=== PATIENT | male | born 1970 | race African-American/Black ===

== ENCOUNTER 2020-08-12 13:11 | Emergency (ER) | payer OTHER ==
[2020-08-12 13:19] VITALS: BP 168/98; PULSE 100; TEMP 98.5; BMI 29.0
[2020-08-12] MEDS ORDERED: LIDOCAINE 5% TOPICAL PATCH TP ONE (13:27)
[2020-08-12] MEDS ORDERED: LIDOCAINE 5% TOPICAL PATCH ONE (13:28)
--- NOTE | 2020-08-12 14:08 | PDOC ---
History of Present Illness - General Chief Complaint: Pain, Acute Stated Complaint: PAIN Time Seen by Provider: 08/12/20 13:20 History Source: Patient Exam Limitations: No Limitations - History of Present Illness Initial Comments: 08/12/20 13:59 Patient is a 50-year-old male with a history of hypertension, diabetes, asthma, bilateral hip replacements, lumbar fusion who presents to the ED with complaint of right-sided neck pain that he has had for the last several days. He states he was seen in an urgent care center and started on Naprosyn which has not helped. The patient states he has difficulty with turning his head to the right. He states he woke up with the pain. He states that the pain does radiate down his right lower extremity. He denies dropping anything. He denies any loss of sensation. The patient was unable to see his primary doctor as they were not open. He was sent for physical therapy but has not started to get. Past History - Medical History Allergies/Adverse Reactions: Allergies Allergy/AdvReac Type Severity Reaction Status Date / Time shellfish derived Allergy Mild Swelling Verified 08/12/20 13:16 Penicillins Allergy Verified 08/12/20 13:16 Home Medications: Ambulatory Orders Simvastatin [Zocor] 20 mg PO HS 11/14/12 Acyclovir [Zovirax -] 800 mg PO DAILY #0 tablet 11/15/12 Amlodipine Besylate [Norvasc -] 5 mg PO DAILY 04/19/15 Salmeterol/Fluticasone [Advair 100Mcg/50Mcg -] 1 inh PO BID 04/19/15 Aspirin [ASA -] 81 mg PO DAILY 03/12/16 Bupropion HCl [Wellbutrin Xl -] 150 mg PO DAILY 03/12/16 Hydrocodone/Acetaminophen [[place] 10-325 Tablet] 1 each PO BID PRN #60 tablet MDD 2 03/12/16 Insulin Glargine,Hum.rec.anlog [Lantus Solostar PEN (NF)] 30 units SQ HS 03/12/16 Metformin HCl [Glucophage] 1,000 mg PO BIDAC 03/12/16 Ramipril [Altace] 5 mg PO DAILY 03/12/16 Sitagliptin Phosphate [Januvia -] 100 mg PO DAILY@0700 03/12/16 Zolpidem Tartrate [Ambien] 10 mg PO HS 03/12/16 Tramadol HCl 50 mg PO TID PRN 3 Days #9 tablet MDD 3 08/12/20 Asthma: Yes COPD: No Diabetes: Yes HTN: Yes - Surgical History Orthopedic Surgery: Yes (2014 L5-S1 laminectomy) - Psycho-Social/Smoking History Smoking Status: Yes Smoking History: Never smoked Have you smoked in the past 12 months: Yes Number of Cigarettes Smoked Daily: 10 Information on smoking cessation initiated: No 'Breaking Loose' booklet given: 05/06/15 - Substance Abuse Hx (Audit-C & DAST Scrn) How often the patient has a drink containing alcohol: Never How often the patient has six or more drinks on one occasion: Never Score: In Men: 4 or > Positive; In Women: 3 or > Positive: 0 Screen Result (Pos requires Nsg. Audit-10AR): Negative In the last yr the pt used illegal drug/Rx for NonMed reason: No Score: Yes response is considered Positive: 0 Screen Result (Positive result requires Nsg. DAST-10): Negative Review of Systems - Review of Systems Comments:: 08/12/20 14:01 - Review of Systems Able to Perform ROS?: Yes Constitutional: No: Fever, Chills, Loss of Appetite, Night Sweats, Weakness HEENTM: No: Eye Pain, Vision changes, Ear Pain, Throat Pain, Throat Swelling, Mouth Pain, Difficulty Swallowing Respiratory: No: Cough, Shortness of Breath, Wheezing, Sputum Production Cardiac (ROS): No: Chest Pain, Chest Tightness, Palpitations, Irregular Heart Beat, Edema ABD/GI: No: Nausea, Vomiting, Abdominal Pain, Diarrhea : No Dysuria, No Hematuria, No Frequency, No Urgency Musculoskeletal: No: Muscle Pain, Back Pain, Joint Pain, Muscle Weakness; positive: Neck Pain Integumentary: No: Lesions, Rash Neurological: No: Headache, Numbness, Tingling, Weakness, Speech Difficulties *Physical Exam - Vital Signs Last Vital Signs Temp Pulse Resp BP Pulse Ox 98.5 F 100 H 19 168/98 99 08/12/20 13:13 08/12/20 13:13 08/12/20 13:13 08/12/20 13:13 08/12/20 13:13 - Physical Exam 08/12/20 14:01 - Physical Exam General Appearance: Nourished, Appropriately Dressed, No Distress HEENT: EOMI, Normal Voice, Hearing Grossly Normal Neck: Supple, No Lymphadenopathy (R), No Lymphadenopathy (L), No Rigidity, No Decreased range of motion Respiratory/Chest: Lungs Clear, Normal Breath Sounds. No Respiratory Distress, No Accessory Muscle Use Cardiovascular: Regular Rhythm, Regular Rate, S1, S2 Musculoskeletal: Normal Inspection. Paraspinal right-sided neck tenderness to palpation with pain with rotation of the head to the right. Strength 5/5 bilateral upper extremities. Sensation intact to light touch to the radial, median and ulnar nerve distributions. No midline tenderness to palpation. Extremity: Normal Capillary Refill, Normal Inspection Integumentary: Normal Color, Dry. No Rash Neurologic: concaver II-XII NML intact, Fully Oriented, Alert, Normal Mood/Affect, Normal Response ED Treatment Course - RADIOLOGY Radiology Studies Ordered: Category Date Time Status SPINE-CERVICAL (2-3VIEWS) [RAD] Stat Radiology 08/12/20 13:26 Taken - Medications Given in the ED: ED Medications Discontinued Medications Generic Name Dose Route Start Last Admin Trade Name Freq PRN Reason Stop Dose Admin Lidocaine 1 patch 08/12/20 13:27 08/12/20 13:29 Lidoderm Patch - TP 08/12/20 13:28 1 patch ONCE ONE Administration Medical Decision Making - Medical Decision Making 08/12/20 14:08 Assessment: Patient is a 50-year-old male with right-sided neck pain for the last 1 week. Plan: -Neck x-ray ordered -Lidoderm patch placed -We will reassess 08/12/20 14:18 The patient's x-ray shows no acute pathology. Normal lordotic curve appreciated. No significant spondylolisthesis appreciated. The patient has been given a tramadol in the emergency department. Will discharge patient with a prescription for tramadol and to follow-up with orthopedic spine surgery. He understands and agrees with this treatment plan and he is stable for discharge. Discharge - Discharge Information Problems reviewed: Yes Clinical Impression/Diagnosis: Neck pain on right side Condition: Stable Disposition: HOME - Additional Discharge Information Prescriptions: Tramadol HCl 50 mg PO TID PRN 3 Days #9 tablet MDD 3 PRN Reason: Pain - Follow up/Referral Referrals: Erik Ahn II, DO [Primary Care Provider] - Call tomorrow Dmitry Tavarez MD [Staff Physician] - - Patient Discharge Instructions Patient Printed Discharge Instructions: DI for Neck Pain Additional Instructions: Get plenty of rest and drink plenty of fluids. Take the tramadol as prescribed but only as needed. Be sure to follow-up with orthopedic spine surgery for further evaluation and treatment as you may require an outpatient MRI. You can continue to use the Naprosyn as needed that you were previously prescribed. - Post Discharge Activity Work/Back to School Note: Back to Work
[2020-08-12] MEDS ORDERED: traMADol HCL 50 MG TABLET PO ONE (14:16)
[2020-08-12] MEDS ORDERED: traMADol HCL 50 MG TABLET ONE (14:17)
[2020-08-12] MEDS ORDERED: LIDOCAINE PATCH REMOVAL MC SCH (22:00)
== END 2020-08-12 14:59 | disposition home or self-care (01) ==
LOC: JERFT 13:11
DX: M54.2 Cervicalgia (principal)
CPT/HCPCS: 72040-TC; 99284-25

== ENCOUNTER 2022-07-09 15:21 | Emergency (ER) | payer OTHER ==
[2022-07-09 15:30] VITALS: BMI 27.3
[2022-07-09] MEDS ORDERED: predniSONE 20 MG TABLET (UD) PO ONE (18:11)
[2022-07-09] MEDS ORDERED: FAMOTIDINE 20 MG TABLET PO ONE (18:11)
[2022-07-09] MEDS ORDERED: predniSONE 20 MG TABLET (UD) ONE (18:17)
[2022-07-09] MEDS ORDERED: FAMOTIDINE 20 MG TABLET ONE (18:17)
[2022-07-09 19:48] VITALS: BP 141/79; PULSE 82; RESP 17; TEMP 98.1
== END 2022-07-09 19:49 | disposition home or self-care (01) ==
LOC: JER 15:21
PROC: 3E023GC Introduction of Other Therapeutic Substance into Muscle, Percutaneous Approach (ICD-10-PCS; principal; 2022-07-09)
DX: T78.3XXA Angioneurotic edema, initial encounter (principal)
CPT/HCPCS: 99284-25

== ENCOUNTER 2023-12-10 17:32 | Emergency (ER) | payer OTHER ==
[2023-12-10 17:47] VITALS: RESP 18; TEMP 98.1; BMI 26.6
[2023-12-10] MEDS ORDERED: LACTATED RINGERS SOLUTION 1000 ML INFUS.BAG IV ONE (19:15)
[2023-12-10 19:22] LABS: HEMATOCRIT 41.7 % (35.4-49); HEMOGLOBIN 13.6 GM/dL (11.7-16.9); MCH 27.7 pg (25.7-33.7); MCHC 32.7 g/dl (32.0-35.9); MEAN CELL VOLUME 84.9 fl (80-96); MEAN PLT VOLUME 7.8 fl (7.5-11.1); PLATELET COUNT 323 10^3/uL (134-434); RBC 4.91 M/mm3 (4.00-5.60); RDW 13.9 % (11.9-15.9); WHITE BLOOD COUNT 9.7 K/mm3 (4.0-10.0)
[2023-12-10 19:23] LABS: VENOUS BASE EXCESS 1.2 mmol/L (-2-2); VENOUS O2 SATURATION 93.1 % (70-80); VENOUS PCO2 40.5 mmHg (38-52); VENOUS PH 7.421 (7.310-7.410)
[2023-12-10 19:28] LABS: INR 1.03 (0.83-1.09)
[2023-12-10 19:30] LABS: ACTIVATED PTT 25.1 SECONDS (25.2-36.5)
[2023-12-10 19:32] LABS: ARTERIAL BLD GAS O2 SATURATION 96.4 % (95-98); ARTERIAL BLOOD GAS BASE EXCESS 0.3 mmol/L (-2-2); ARTERIAL BLOOD GAS PO2 85.2 mmHg (80-100); ARTERIAL BLOOD GAS pH 7.397 (7.350-7.450)
[2023-12-10 19:33] LABS: ALLENS TEST POSITIVE
[2023-12-10 19:46] LABS: POTASSIUM 4.8 mmol/L (3.5-5.1)
[2023-12-10 19:48] LABS: ALBUMIN 3.7 g/dl (3.4-5.0)
[2023-12-10 19:49] LABS: BLOOD UREA NITROGEN 23.2 mg/dL (7-18); MAGNESIUM 1.1 mg/dL (1.8-2.4)
[2023-12-10 19:51] LABS: PHOSPHOROUS 4.4 mg/dL (2.5-4.9)
[2023-12-10 19:52] LABS: CREATININE 1.1 mg/dL (0.55-1.3)
[2023-12-10 19:53] LABS: BILIRUBIN,TOTAL 0.4 mg/dL (0.2-1); TOT PROT 8.1 g/dl (6.4-8.2)
[2023-12-10] MEDS ORDERED: MAGNESIUM SULFATE IN WATER 2 GM/50 ML IVPB IVPB ONE ×2 (20:02→20:13)
[2023-12-10 20:24] LABS: PH,URINE 5.5 (5.0-8.0); URINE APPEARANCE CLEAR; URINE BILIRUBIN NEGATIVE (NEGATIVE); URINE COLOR YELLOW; URINE GLUCOSE (UA) 3+ (NEGATIVE); URINE KETONE NEGATIVE (NEGATIVE); URINE LEUK ESTERASE NEGATIVE (NEGATIVE); URINE NITRITE NEGATIVE (NEGATIVE); URINE PROTEIN NEGATIVE (NEGATIVE)
[2023-12-10 20:43] VITALS: BP 132/68; PULSE 74
== END 2023-12-10 20:48 | disposition home or self-care (01) ==
LOC: JER 17:32
PROC: 3E033GC Introduction of Other Therapeutic Substance into Peripheral Vein, Percutaneous Approach (ICD-10-PCS; principal; 2023-12-10)
DX: R73.9 Hyperglycemia, unspecified (principal); Z20.822 Contact with and (suspected) exposure to COVID-19
CPT/HCPCS: 0241U-QW; 36415; 36600; 80053; 81003; 82010; 82803; 82962; 83735; 84100; 85027; 85610; 85730; 87077; 87086; 93005; 93010; 96374; 99284-25